=== PATIENT | male | born 1980 | race African-American/Black ===

== ENCOUNTER 2019-07-06 11:20 | Emergency (ER) | payer BC ==
[~2019-07-06] VITALS: Ht 182.9 cm; Wt 116.1 kg
[2019-07-06 12:00] VITALS: BP 128/81
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
[2019-07-06] MEDS ORDERED: IBUPROFEN600 MG ORAL (12:43)
[2019-07-06] MEDS ORDERED: ROBAXIN-500MG ORAL (12:43)
[2019-07-06] MEDS ORDERED: ACETAMINOPHEN-1 EAC1 ORAL (12:43)
[2019-07-06 12:54] VITALS: BP 121/82
--- NOTE | 2019-07-06 12:54 | NUR ---
ER DISCHARGE NOTE: Patient is cleared to be discharged per ERMD, pt is aox4, on room air, with stable vital signs. pt was given dc and prescription instructions, pt was able to verbalize understanding, pt id band removed. pt is able to ambulate with steady gait. pt took all belongings.
== END 2019-07-06 12:54 | disposition home or self-care (01) ==
LOC: EMR 12:15
DX: S13.4XXA Sprain of ligaments of cervical spine, initial encounter (principal); V43.52XA Car driver injured in collision with other type car in traffic accident, initial encounter; Y92.410 Unspecified street and highway as the place of occurrence of the external cause; Z88.0 Allergy status to penicillin
CPT/HCPCS: 99282

== ENCOUNTER 2020-01-19 08:52 | Emergency (ER) | payer BC ==
[~2020-01-19] VITALS: Ht 182.9 cm; Wt 120.2 kg
[~2020-01-19 08:52] MED LIST: ACETAMINOPHEN-1 EAC1 ORAL; IBUPROFEN600 MG ORAL; ROBAXIN-500MG ORAL
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
[2020-01-19 09:35] VITALS: BP 141/98
[2020-01-19] MEDS ORDERED: ROBAXIN-500MG ORAL (10:32)
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
[2020-01-19 10:38] VITALS: BP 135/84
--- NOTE | 2020-01-19 10:38 | NUR ---
ER DISCHARGE NOTE: Patient is cleared to be discharged per ERMD, pt is aox4, on room air, with stable vital signs. pt was given dc and prescription instructions, pt was able to verbalize understanding, pt id band removed. pt took all belongings. Pt educated about contusion and f/u appt.
== END 2020-01-19 10:39 | disposition home or self-care (01) ==
LOC: EMR 09:20
DX: S86.912A Strain of unspecified muscle(s) and tendon(s) at lower leg level, left leg, initial encounter (principal); S20.229A Contusion of unspecified back wall of thorax, initial encounter; Z88.0 Allergy status to penicillin; V03.90XA Pedestrian on foot injured in collision with car, pick-up truck or van, unspecified whether traffic or nontraffic accident, initial encounter; Y92.9 Unspecified place or not applicable; M51.34 Other intervertebral disc degeneration, thoracic region; M77.9 Enthesopathy, unspecified
CPT/HCPCS: 72070; 99284